=== PATIENT | female | born 2000 | race Caucasian/White ===

== ENCOUNTER 2019-03-03 02:15 | Observation (INO) | payer OTHER, SELFPAY ==
[2019-03-03] MEDS ORDERED: MORPHINE 4 MG/ML SYR ONE (02:52)
[2019-03-03] MEDS ORDERED: KETOROLAC 30 MG/ML INJ ONE (02:52)
[2019-03-03] MEDS ORDERED: ONDANSETRON 4 MG/2 ML VIAL ONE ×3 (02:53→14:24)
[2019-03-03 03:03] LABS: Urine Blood NEGATIVE (NEG); Urine Glucose NEGATIVE (NEG); Urine Protein NEGATIVE (NEG); Urine pH 6.5 (5.0-7.0)
[2019-03-03 03:41] LABS: ALT/SGPT 27 U/L (12-78); AST/SGOT 20 U/L (15-37); Alkaline Phosphatase 82 U/L (45-117); BUN Blood Urea Nitrogen 8 mg/dL (7-18); Bicarbonate 23 mmol/L (21-32); Bilirubin Direct 0.1 mg/dL (0-0.2); Bilirubin Total 0.4 mg/dL (0.2-1.0); Glucose Level 101 mg/dL (74-106); Lipase 154 U/L (73-393); Potassium 3.9 mmol/L (3.5-5.1); Protein, Total 7.1 g/dL (6.4-8.2); Sodium Level 138 mmol/L (136-145)
[2019-03-03 03:55] LABS: Hematocrit 42.8 % (36.0-45.0); MPV 7.4 fL (7.6-11.3)
[2019-03-03 03:59] LABS: Absolute Lymphocytes (CBC) 2.6 K/uL (0.7-4.9); Basophils % 0.4 % (0-1.3); Lymphocytes % 17.7 % (15.3-44.8); RBC Red Blood Cell Count 4.84 M/uL (3.86-4.86)
--- NOTE | 2019-03-03 05:19 | EDPHYS ---
Physician Documentation [facility] Name: Ryanne Sanders Age: 18 yrs Sex: Female : 2000 Arrival Date: 03/03/2019 Time: 02:17 Bed 8 Private MD: ALEXA Physician Bulmaro Hooper HPI: 03/03 02:51 This 18 yrs old Female presents to ER via Ambulatory with complaints of Side maurilio Pain. 02:51 The patient presents with abdominal pain right lower quadrant, abdominal distention in maurilio the upper abdomen, in the lower abdomen. Onset: The symptoms/episode began/occurred just prior to arrival. The patient presents with pain that is acute. The symptoms are located in the low back. Onset: The symptoms/episode began/occurred 1 day(s) ago. The pain does not radiate. Associated signs and symptoms: The patient has no apparent associated signs or symptoms. I O PSYCHOLOGIST: 02:31 LMP 01/29/2019 ch Historical: - Allergies: 02:47 No Known Allergies; ch - Home Meds: 02:47 sertraline oral oral [Active]; ch - PMHx: 02:47 None; ch - PSHx: 02:47 None; ch - Immunization history:: Adult Immunizations up to date. - Social history:: Smoking status: Patient/guardian denies using tobacco. - Ebola Screening: : Patient negative for fever greater than or equal to 101.5 degrees Fahrenheit, and additional compatible Ebola Virus Disease symptoms Patient denies exposure to infectious person Patient denies travel to an Ebola-affected area in the 21 days before illness onset No symptoms or risks identified at this time. ROS: 02:51 Constitutional: Negative for fever, chills, and weight loss, Eyes: Negative for injury, maurilio pain, redness, and discharge, ENT: Negative for injury, pain, and discharge, Neck: Negative for injury, pain, and swelling, Cardiovascular: Negative for chest pain, palpitations, and edema, Respiratory: Negative for shortness of breath, cough, wheezing, and pleuritic chest pain, Back: Negative for injury and pain, : Negative for injury, bleeding, discharge, and swelling, MS/Extremity: Negative for injury and deformity, Skin: Negative for injury, rash, and discoloration, Neuro: Negative for headache, weakness, numbness, tingling, and seizure, Psych: Negative for depression, anxiety, suicide ideation, homicidal ideation, and hallucinations, Allergy/Immunology: Negative for hives, rash, and allergies, Endocrine: Negative for neck swelling, polydipsia, polyuria, polyphagia, and marked weight changes, Hematologic/Lymphatic: Negative for swollen nodes, abnormal bleeding, and unusual bruising. 02:51 Abdomen/GI: Positive for abdominal pain, of the right lower quadrant. Exam: 02:51 Constitutional: This is a well developed, well nourished patient who is awake, alert, maurilio and in no acute distress. Head/Face: Normocephalic, atraumatic. Eyes: Pupils equal round and reactive to light, extra-ocular motions intact. Lids and lashes normal. Conjunctiva and sclera are non-icteric and not injected. Cornea within normal limits. Periorbital areas with no swelling, redness, or edema. ENT: Nares patent. No nasal discharge, no septal abnormalities noted. Tympanic membranes are normal and external auditory canals are clear. Oropharynx with no redness, swelling, or masses, exudates, or evidence of obstruction, uvula midline. Mucous membranes moist. Neck: Trachea midline, no thyromegaly or masses palpated, and no cervical lymphadenopathy. Supple, full range of motion without nuchal rigidity, or vertebral point tenderness. No Meningismus. Chest/axilla: Normal chest wall appearance and motion. Nontender with no deformity. No lesions are appreciated. Cardiovascular: Regular rate and rhythm with a normal S1 and S2. No gallops, murmurs, or rubs. Normal PMI, no JVD. No pulse deficits. Respiratory: Lungs have equal breath sounds bilaterally, clear to auscultation and percussion. No rales, rhonchi or wheezes noted. No increased work of breathing, no retractions or nasal flaring. Back: No spinal tenderness. No costovertebral tenderness. Full range of motion. Skin: Warm, dry with normal turgor. Normal color with no rashes, no lesions, and no evidence of cellulitis. MS/ Extremity: Pulses equal, no cyanosis. Neurovascular intact. Full, normal range of motion. Neuro: Awake and alert, GCS 15, oriented to person, place, time, and situation. Cranial nerves II-XII grossly intact. Motor strength 5/5 in all extremities. Sensory grossly intact. Cerebellar exam normal. Normal gait. Psych: Awake, alert, with orientation to person, place and time. Behavior, mood, and affect are within normal limits. 02:51 Abdomen/GI: Inspection: abdomen appears normal, Bowel sounds: normal, Palpation: moderate abdominal tenderness, in the right lower quadrant, Indicators: Liver: no appreciated palpable abnormalities. Vital Signs: 02:31 BP 123 / 76; Pulse 92; Resp 16; Temp 98.7; Pulse Ox 100% on R/A; Weight 68.04 kg; ch Height 5 ft. (152.40 cm); Pain 8/10; 03:22 BP 110 / 62; Pulse 88; Resp 14; Temp 98.2; Pulse Ox 99% on R/A; Pain 7/10; ch 04:32 BP 108 / 64; Pulse 70; Resp 16; Pulse Ox 100% ; ea 05:30 BP 118 / 58; Pulse 77; Resp 14; Temp 99.2; Pulse Ox 99% on R/A; Pain 2/10; ch 06:28 BP 106 / 52; Pulse 68; Resp 16; Pulse Ox 98% on R/A; Pain 2/10; ch 02:31 Body Mass Index 29.29 (68.04 kg, 152.40 cm) MDM: 02:30 Patient medically screened. [facility] 02:53 Data reviewed: vital signs, nurses notes, lab test result(s), radiologic studies, CT maurilio scan. 03/03 02:24 Order name: Urine Culture [facility] 03/03 02:24 Order name: Urine Microscopic Only [facility] 03/03 02:51 Order name: Basic Metabolic Panel; Complete Time: 03:59 [facility] 03/03 02:51 Order name: CBC with Diff; Complete Time: 04:22 [facility] 03/03 02:51 Order name: Creatinine for Radiology; Complete Time: 03:59 [facility] 03/03 02:51 Order name: Hepatic Function; Complete Time: 03:59 [facility] 03/03 02:51 Order name: Lipase; Complete Time: 03:59 [facility] 03/03 02:51 Order name: CT Abd/Pelvis - IV Contrast Only [facility] 03/03 02:54 Order name: Urine Dipstick--Ancillary (enter results); Complete Time: 03:59 ar 03/03 02:54 Order name: Urine --Ancillary (enter results); Complete Time: 03:59 ar5 03/03 02:24 Order name: Urine Test (obtain specimen); Complete Time: 03:23 snw 03/03 02:24 Order name: Urine Dipstick-Ancillary (obtain specimen); Complete Time: 03:23 snw 03/03 02:51 Order name: IV Saline Lock; Complete Time: 03:17 maurilio 03/03 02:51 Order name: Labs collected and sent; Complete Time: 03:17 maurilio 03/03 05:31 Order name: NPO; Complete Time: 06:22 [facility] Administered Medications: 03:23 Drug: TORadol 30 mg Route: IVP; Site: left antecubital; ch 03:54 Follow up: Response: No adverse reaction; Marked relief of symptoms ch 03:23 Drug: Zofran 4 mg Route: IVP; Site: left antecubital; ch 03:54 Follow up: Response: No adverse reaction ch 03:23 Drug: NS 0.9% 1000 ml Route: IV; Rate: 1 bolus; Site: left antecubital; ch 03:54 Follow up: IV Status: Completed infusion; IV Intake: 1000ml ch 05:41 Drug: Zosyn 3.375 grams Route: IVPB; Infused Over: 60 mins; Site: left antecubital; ea 06:37 Not Given (Patient Refused): morphine 2 mg IVP once; (PAIN>8) RASS on ADMN: Combtv4, ch Very Agttd3, Agttd2, Rstlss1, AlertClm0, Drwsy-1, LtSdtn-2, ModSdtn-3, DpSdtn-4, UnArsble-5 x2 Disposition: 03/03/19 05:18 Hospitalization ordered by He Beth for Observation. Preliminary diagnosis are Abdominal tenderness, Acute appendicitis. - Bed requested for Telemetry/MedSurg (observation). - Status is Observation. ch - Condition is Stable. - Problem is new. - Symptoms have improved. UTI on Admission? No Signatures: Dispatcher [employer] EDFrancia Nava RN Nupur Dc ch, RN RN mw Anderson, Corey, MD MD cha Therrien, Shelly, [employer] FURN[employer] SALES-C [employer]-[place]ian[place] Kathy Hernandez RN MICHAEL donohue Corrections: (The following items were deleted from the chart) 04:23 04:23 03/03/2019 04:23 Discharged to Home. Impression: Abdominal tenderness. Condition maurilio is Stable. Discharge Instructions: Abdominal Pain, Pediatric. Forms are Medication Reconciliation Form, Thank You Letter, Antibiotic Education, Prescription Opioid Use. Follow up: Private Physician; When: 2 - 3 days; Reason: Recheck today's complaints, Continuance of care, Re-evaluation by your physician. Problem is new. Symptoms have improved. maurilio 05:51 05:18 Hospitalization Ordered by He Beth MD for Observation. Preliminary mw diagnosis is Abdominal tenderness; Acute appendicitis. Bed requested for Telemetry/MedSurg (observation). Status is Observation. Condition is Stable. Problem is new. Symptoms have improved. UTI on Admission? No. maurilio 06:54 05:51 03/03/2019 05:18 Hospitalization Ordered by He Beth MD for Observation. ch Preliminary diagnosis is Abdominal tenderness; Acute appendicitis. Bed requested for Telemetry/MedSurg (observation). Status is Observation. Condition is Stable. Problem is new. Symptoms have improved. UTI on Admission? No. mw
--- NOTE | 2019-03-03 05:19 | ER ---
Nurse's Notes [facility] Name: Ryanne Sanders Age: 18 yrs Sex: Female : 2000 Arrival Date: 03/03/2019 Time: 02:17 Bed 8 Private MD: Diagnosis: Abdominal tenderness;Acute appendicitis Presentation: 03/03 02:31 Presenting complaint: Patient states: PAIN TO RLQ ABDOMEN, AROUND SIDE, AND INTO RLOWER ch BACK SINCE 1700. Transition of care: patient was not received from another setting of care. Onset of symptoms was March 02, 2019 at 17:00. Risk Assessment: Do you want to hurt yourself or someone else? Patient reports no desire to harm self or others. Initial Sepsis Screen: Does the patient meet any 2 criteria? No. Patient's initial sepsis screen is negative. Does the patient have a suspected source of infection? No. Patient's initial sepsis screen is negative. Care prior to arrival: None. 02:31 Method Of Arrival: Ambulatory 02:31 Acuity: COSME 3 ch Triage Assessment: 02:31 General: Appears in no apparent distress. uncomfortable, Behavior is calm, cooperative, ch appropriate for age. Pain: Complains of pain in right low back, posterior aspect of right lateral abdomen, anterior aspect of right lateral abdomen and right lower quadrant Pain currently is 8 out of 10 on a pain scale. Pain began suddenly. Neuro: No deficits noted. Cardiovascular: No deficits noted. Respiratory: Airway is patent Respiratory effort is even, unlabored. Derm: Skin is pink, warm \T\ dry. 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 - Social history:: Smoking status: Patient/guardian denies using tobacco. - Ebola Screening: : Patient negative for fever greater than or equal to 101.5 degrees Fahrenheit, and additional compatible Ebola Virus Disease symptoms Patient denies exposure to infectious person Patient denies travel to an Ebola-affected area in the 21 days before illness onset No symptoms or risks identified at this time. Screenin:53 Abuse screen: Denies threats or abuse. Denies injuries from another. Nutritional screening: No deficits noted. Tuberculosis screening: No symptoms or risk factors identified. Fall Risk None identified. Assessment: 03:22 General: Appears in no apparent distress. uncomfortable, Behavior is calm, cooperative, ch appropriate for age. Respiratory: Airway is patent Respiratory effort is even, unlabored. 03:53 Reassessment: Patient appears in no apparent distress at this time. Patient and/or family updated on plan of care and expected duration. Pain level reassessed. Patient is alert, oriented x 3, equal unlabored respirations, skin warm/dry/pink. Patient states feeling better. Patient states symptoms have improved. 04:20 Reassessment: Patient appears in no apparent distress at this time. No changes from previously documented assessment. Patient and/or family updated on plan of care and expected duration. Pain level reassessed. Patient is alert, oriented x 3, equal unlabored respirations, skin warm/dry/pink. Patient states symptoms have improved. 04:20 Reassessment: AWAITING CT RESULTS. 05:30 Reassessment: PHYSICIAN TELLS PT PLAN OF CARE, DX AND RESULTS. PT AND FAMILY VERB UNDERSTANDING. AWAITING DR ANDERS TO CONSENT PT. 06:29 Reassessment: ROOM RECEIVED, REPORT CALLED TO SECOND FLOOR. WILL SEND PT UP IN 10 MIN. Vital Signs: 02:31 BP 123 / 76; Pulse 92; Resp 16; Temp 98.7; Pulse Ox 100% on R/A; Weight 68.04 kg; ch Height 5 ft. (152.40 cm); Pain 8/10; 03:22 BP 110 / 62; Pulse 88; Resp 14; Temp 98.2; Pulse Ox 99% on R/A; Pain 7/10; ch 04:32 BP 108 / 64; Pulse 70; Resp 16; Pulse Ox 100% ; ea 05:30 BP 118 / 58; Pulse 77; Resp 14; Temp 99.2; Pulse Ox 99% on R/A; Pain 2/10; ch 06:28 BP 106 / 52; Pulse 68; Resp 16; Pulse Ox 98% on R/A; Pain 2/10; ch 02:31 Body Mass Index 29.29 (68.04 kg, 152.40 cm) ED Course: 02:17 Patient arrived in ED. ds1 02:29 Rufus, Bulmaro, MD is Attending Physician. maurilio 02:31 Francia Jackson, RN is Primary Nurse. ch 02:31 Triage completed. ch 02:31 Arm band placed on left wrist. Patient placed in an exam room, on a stretcher. ch 03:10 Initial lab(s) drawn, by me, sent to lab. Inserted saline lock: 20 gauge in right aa1 antecubital area, using aseptic technique. Blood collected. 03:53 No apparent distress. Resting quietly. ch 03:53 Patient has correct armband on for positive identification. Bed in low position. Call light in reach. Adult w/ patient. Pulse ox on. NIBP on. Warm blanket given. 03:53 No provider procedures requiring assistance completed. ch 04:23 CT Abd/Pelvis - IV Contrast Only In Process Unspecified. EDMS 05:18 He Anders MD is Hospitalizing Provider. maurilio 06:28 Patient admitted, IV remains in place. ch Administered Medications: 03:23 Drug: TORadol 30 mg Route: IVP; Site: left antecubital; ch 03:54 Follow up: Response: No adverse reaction; Marked relief of symptoms ch 03:23 Drug: Zofran 4 mg Route: IVP; Site: left antecubital; ch 03:54 Follow up: Response: No adverse reaction ch 03:23 Drug: NS 0.9% 1000 ml Route: IV; Rate: 1 bolus; Site: left antecubital; ch 03:54 Follow up: IV Status: Completed infusion; IV Intake: 1000ml ch 05:41 Drug: Zosyn 3.375 grams Route: IVPB; Infused Over: 60 mins; Site: left antecubital; ea 06:37 Not Given (Patient Refused): morphine 2 mg IVP once; (PAIN>8) RASS on ADMN: Combtv4, ch Very Agttd3, Agttd2, Rstlss1, AlertClm0, Drwsy-1, LtSdtn-2, ModSdtn-3, DpSdtn-4, UnArsble-5 x2 Intake: 03:54 IV: 1000ml; Total: 1000ml. ch Outcome: 04:23 Discharge ordered by . maurilio 05:18 Decision to Hospitalize by Provider. maurilio 06:54 Patient left the ED. ch Signatures: Dispatcher [employer] EDCT Jackson, Francia, RN RN ch Olga Mora RN RN aa1 Bulmaro Hooper MD MD cha Sanford, Demi ds1 Antunez, Elena, RN RN ea
[2019-03-03] MEDS ORDERED: PIPER/TAZO/NS 3.375gm 3.375 GM/100 ML BAG ONE (05:30)
[2019-03-03 06:13] LABS: Urine Culture Reflex Order NOT NEEDED
[2019-03-03 06:14] LABS: Urine Bacteria <20 /HPF (<20); Urine RBC <5 /HPF (NONE SEEN)
[2019-03-03] MEDS ORDERED: PIPER/TAZO/NS 3.375gm 3.375 GM/100 ML BAG IVPB SCH (06:59)
[2019-03-03] MEDS ORDERED: ONDANSETRON 4 MG/2 ML VIAL IV PRN (06:59)
[2019-03-03] MEDS ORDERED: ACETAMINOPHEN 325 MG TABLET PO PRN (06:59)
[2019-03-03] MEDS ORDERED: MORPHINE 4 MG/ML SYR IV PRN (06:59)
[2019-03-03 07:29] VITALS: BMI 29.2
[2019-03-03] MEDS: D5 0.45 NS 1,000 ML IV SCH ×2 (08:16→14:59)
[2019-03-03] MEDS ORDERED: INFLUENZA VACCINE (for 3y+) 0.5 ML DOSE IMVAC ONE (09:00)
[2019-03-03] MEDS: PIPER/TAZO/NS 3.375gm 3.375 GM/100 ML BAG IVPB SCH ×2 (11:29→17:00)
[2019-03-03 13:17] VITALS: O2SAT 100
[2019-03-03] MEDS ORDERED: Ringers Lactate 1,000 ML IV ONE (13:20)
[2019-03-03] MEDS ORDERED: PROPOFOL 200 MG/20 ML VIAL IV ONE (13:42)
[2019-03-03] MEDS ORDERED: ROCURONIUM 50 MG/5 ML VIAL IV ONE (13:42)
--- NOTE | 2019-03-03 13:49 | RAD REPORT ---
EXAM DESCRIPTION: CT - Abdomen Pelvis W Contrast - 03/03/2019 5:59 am COMPARISON: None. TECHNIQUE: CT ABDOMEN PELVIS WITH IV CONTRAST on 03/03/2019 2:51 AM CDT This exam was performed according to our departmental dose-optimization program, which includes autom ated exposure control, adjustment of the mA and/or kV according to patient size and/or use of iterati ve reconstruction technique. FINDINGS: Lower lungs are clear. Abdomen: The liver is normal in appearance. There is no biliary dilatation. Gallbladder is decompress ed. The pancreas and spleen are normal in appearance. The adrenal glands and kidneys are unremarkable . Abdominal aorta is normal in course and caliber without aneurysm. There is no free air. There is no r etroperitoneal adenopathy. Pelvis: There is no bowel obstruction. Urinary bladder is unremarkable. There is free pelvic fluid. A ppendix is dilated at 1.1 cm. There is mild surrounding inflammation. Uterus is normal in size. Skeleton: There are no acute osseous findings. No suspicious bony lesions. IMPRESSION: Suspect acute appendicitis. Electronically signed by: Atif Bean MD 03/03/2019 4:56 AM CDT Due to temporary technical issues with the PACS/Fluency reporting system, reports are being signed by the in house radiologist as a courtesy to ensure prompt reporting. The interpreting radiologist is f ully responsible for the content of the report.
[2019-03-03] MEDS ORDERED: MIDAZOLAM HCL 2 MG/2 ML INJ ONE (14:01)
[2019-03-03] MEDS ORDERED: FENTANYL CITR 100 MCG/2 ML ONE (14:01)
[2019-03-03] MEDS ORDERED: dexAMETHasone 10 MG/ML VIAL ONE (14:24)
[2019-03-03] MEDS ORDERED: MEPERIDINE HCL 25 MG/0.5 ML ONE (14:42)
[2019-03-03] MEDS ORDERED: Mastisol Adhesive Liq ONE (14:44)
--- NOTE | 2019-03-03 14:52 | P.BOP ---
Preoperative diagnosis: acute appendicitis Postoperative diagnosis: same Primary procedure: Laparoscopic appendectomy Measuring Machine Tender: Ela La (Dot) Estimated blood loss: <10cc Specimen: jordana Findings: as above Anesthesia: General Complications: None Transferred to: Recovery Room Condition: Good
[2019-03-03] MEDS ORDERED: HYDROCODONE/APAP 5/325 MG TAB PO PRN (15:03)
[2019-03-03] MEDS ORDERED: D5 0.45 NS 1,000 ML IV ONE (15:05)
[2019-03-03 18:13] VITALS: BP 108/55; TEMP 98.6
--- NOTE | 2019-03-04 00:45 | HP ---
Date of Admission: 03/03/2019 Diagnoses: Right lower quadrant abdominal pain. History Of Present Illness: This is the case of a 18-year-old patient, who comes to us with right lo wer quadrant pain for the last 24 hours. She showed up this morning in ER after the pain was not imp roving and getting worse in the right lower quadrant. She states some bloating, nausea. No vomiting . She denies any dysuria, hematuria, hematochezia, or melena. Denies recent travel to another [facility]. Denies any family member sick at home. Denies any vaginal discharge. Denies any period this mo ment. Last menstrual period was on 01/29/2019. Allergies: NONE. Medications: Sertraline. Medical Problems: None. Surgeries: None. Social History: She does not smoke. She does not drink alcohol. Review of Systems: Ten points, otherwise unremarkable. Physical Examination: General: Patient is awake and alert. HEENT: Pupils are equal and reactive. Anicteric. Neck: Supple. Chest: Clear. Abdomen: Right lower quadrant tenderness with guarding and rebound. Psoas signs positive. Pelvic: Deferred. Breast: Deferred. Rectal: Deferred. Extremities: Good capillary refill. Good peripheral pulses. Neuro: Oriented x3. Laboratory Data: Blood work shows WBC count of 14.7, hemoglobin of 14.8, chloride is 108, lipase is 154. UA, nitrite negative. test negative. CAT scan of abdomen and pelvis interpreted by radiologist as early appendicitis. Assessment And Plan: This is a 18-year-old female with intractable right lower quadrant tenderness w ith guarding and rebound. Appendix review suspecting acute appendicitis. Patient was explained the surgical findings and imaging findings with benefits, alternatives, and risks of emergent laparoscopi c, possible open appendectomy fully explained which include but are not limited to infection, bleedin g, damage to adjacent structures, anesthesia complication, negative appendix, negative exploration, M I, and even . She also understands this may not relieve the symptoms. She might need more than one surgical intervention. She understands also chance of negative appendix. She understood. OR w as notified. Case emergently scheduled. KAMLESH Voice ID: [id number]
--- NOTE | 2019-03-04 01:50 | OP ---
Date of Procedure: 03/03/2019 Surgeon: He Beth MD Internet Developer: BEN Pruitt Preoperative Diagnosis: Acute appendicitis. Postoperative Diagnosis: Acute appendicitis. Procedure: Laparoscopic appendectomy. Estimated Blood Loss: Less than 10 cc. Specimen: Appendix. Anesthesia: General plus local. Indications: This is a case of a 18-year-old patient, who comes to us with above diagnosis. Fully e xplained the benefits, alternatives, and risks of laparoscopic, possible open appendectomy, which inc lude but are not limited to infection, bleeding, damage to adjacent structures, anesthesia complicati on, [place], and even . She also understands this may not relieve her symptoms. She might need more than 1 surgical intervention. She understood, signed the consent. Description Of Procedure: Patient was brought to the operating room, placed in supine position. Ane sthesia was done without complication. Abdominal area was prepped and draped in a sterile fashion. Marcaine 0.5% was injected for local anesthetic, followed by sharp incision of the skin in the infrau mbilical region. Incision was carried down to fascia, which was opened under direct vision. Periton eum was encountered, opened under direct vision. Vicryl #1 placed inside the fascia. Lauren trocar was carefully introduced. No bleeding was obtained. I placed 3 more trocars, 5 mm each one of them, in the suprapubic, left lower quadrant under direct visualization. This allowed me to visualize the area of the appendix. We noticed the appendix to be inflamed, erythematosus consisted with appendic itis. The base of the appendix was spared, so we created window in the base of the appendix, transec leland that with an Endo ALIX 45 mm 3.5, and the mesoappendix with an Endo ALIX 45 mm 2.5. No bowel leak. No bleeding. Appendix was removed from the abdomen using EndoCatch through the umbilical incision. The area was inspected once again. No bowel leak. No bleeding. At that moment, I proceeded to re move trocars under direct vision. Deflated pneumoperitoneum. Closed the fascia with #1 Vicryl. Irr igated subcu tissue, closed that with 3-0 chromic and skin with 3-0 chromic and Steri-Strips on top. Sponge count and instrument counts were correct. The patient tolerated the procedure well. Patient was sent to recovery in stable condition. HM/MODL Voice ID: [id number] Report ID: [id number]
--- NOTE | 2019-03-04 02:16 | DS ---
Date of Discharge: 03/03/2019 Diagnosis: Acute appendicitis. Procedure: Laparoscopic appendectomy. Disposition: Home. Activity: As tolerated. No heavy lifting. Followup: Follow up in my office in 1 week. Call for appointment [phone]. Wound Care: Keep area dry for 48 hours, then may shower. Keep Steri-Strips intact. Medications: Augmentin 875 p.o. q.12, Zofran 4 every 6 p.r.n. nausea, and Tylenol No. 3 q.4 hours p. r.n. pain. Discharge Instructions: Patient advised to take diet first. If she can tolerate diet, she can go ho me as she wished. Otherwise, we will send the patient home tomorrow morning. We will try diet this afternoon. KAMLESH Voice ID: [id number] Report ID: [id number]
== END 2019-03-03 19:02 | disposition home or self-care (01) ==
LOC: ER 02:15 → 2ND 06:27
PROVIDERS: ADMIT Surgery; ATTEND Surgery
PROC: 0DTJ4ZZ Resection of Appendix, Percutaneous Endoscopic Approach (ICD-10-PCS; principal; 2019-03-03 12:30)
DX: K35.80 Unspecified acute appendicitis (principal); F17.290 Nicotine dependence, other tobacco product, uncomplicated
CPT/HCPCS: 36415; 74177; 80048; 80076; 81003; 81015; 81025; 83690; 85025; 87086; 87088; 88304; 96361; 96374; 96375; 99284; G0378; J1100; J2175; J2250; J2405; J2543; J2704; J3010; Q9967

== ENCOUNTER 2022-02-27 13:40 | Emergency (ER) | payer SELFPAY ==
[2022-02-27 15:05] LABS: Absolute Lymphocytes (CBC) 2.4 K/uL (0.7-4.9); Hematocrit 42.4 % (36.0-45.0); Lymphocytes % 23.6 % (15.3-44.8); MCV 86.5 fL (80-100); MPV 6.5 fL (7.6-11.3)
--- NOTE | 2022-02-27 15:08 | RAD REPORT ---
EXAM DESCRIPTION: RAD - Chest Single View - 02/27/2022 3:00 pm CLINICAL HISTORY: CHEST PAIN Chest pain. COMPARISON: Chest Single View dated 11/18/2016; Abdomen 1 View (KUB) dated 10/07/2015 FINDINGS: Portable technique limits examination quality. The lungs are grossly clear. The heart is normal in size. No displaced fractures. IMPRESSION: No acute intrathoracic process suspected.
[2022-02-27 15:36] LABS: Potassium 3.7 mmol/L (3.5-5.1); Troponin High Sensitivity 3.2 pg/mL (<58.9)
--- NOTE | 2022-02-27 18:11 | ER ---
Nurse's Notes [facility] Name: Ryanne Sanders Age: 21 yrs Sex: Female : 2000 Arrival Date: 02/27/2022 Time: 13:44 Bed 23 [facility] MD: Diagnosis: Chest pain, unspecified Presentation: 02/27 13:47 Chief complaint: Patient states: Chest pain, SOB, left arm "sore" on and off since ld1 Wednesday. "I think it is my anxiety panic attacks.". Coronavirus screen: At this time, the client does not indicate any symptoms associated with coronavirus-19. Ebola Screen: No symptoms or risks identified at this time. Initial Sepsis Screen: Does the patient meet any 2 criteria? No. Patient's initial sepsis screen is negative. Does the patient have a suspected source of infection? No. Patient's initial sepsis screen is negative. Risk Assessment: Do you want to hurt yourself or someone else? Patient reports no desire to harm self or others. Onset of symptoms was February 27, 2022 at 13:50. 13:47 Method Of Arrival: Ambulatory ld1 13:47 Acuity: COSME 3 ld1 Triage Assessment: 13:50 General: Appears in no apparent distress. Behavior is cooperative, anxious. Pain: ld1 Complains of pain in chest Pain does not radiate. Pain currently is 0 out of 10 on a pain scale. at worst was 8 out of 10 on a pain scale. Quality of pain is described as pressure. EENT: No signs and/or symptoms were reported regarding the EENT system. Neuro: Level of Consciousness is awake, alert, obeys commands, Oriented to person, place, time, situation. Cardiovascular: Capillary refill < 3 seconds Patient's skin is warm and dry. Respiratory: Airway is patent Respiratory effort is even, unlabored. GI: Abdomen is flat, non-distended. : No signs and/or symptoms were reported regarding the genitourinary system. Derm: No signs and/or symptoms reported regarding the dermatologic system. Musculoskeletal: No signs and/or symptoms reported regarding the musculoskeletal system. 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 - Social history:: Smoking status: Reported history of juuling and/or vaping. Patient/guardian denies using alcohol. Screenin:54 Abuse screen: Denies threats or abuse. Nutritional screening: No deficits noted. ll1 Tuberculosis screening: No symptoms or risk factors identified. Fall Risk IV access (20 points). Total Mcadams Fall Scale indicates No Risk (0-24 pts). Assessment: 17:16 Reassessment: No changes from previously documented assessment. Patient and/or family ll1 updated on plan of care and expected duration. Pain level reassessed. Patient is alert, oriented x 3, equal unlabored respirations, skin warm/dry/pink. 17:40 Reassessment: No changes from previously documented assessment. Patient and/or family ll1 updated on plan of care and expected duration. Pain level reassessed. 18:21 Pain: Pain began. kr3 Vital Signs: 13:47 Pulse 90; Resp 18; Temp 97.6(TE); Pulse Ox 100% on R/A; Weight 61.23 kg; Height 4 ft. ld1 11 in. (149.86 cm); Pain 0/10; 17:15 BP 103 / 71; Pulse 75; Resp 16; Pulse Ox 99% ; ll1 18:20 BP 94 / 73; Pulse 60; Resp 16; Pulse Ox 100% on R/A; kr3 13:47 Body Mass Index 27.27 (61.23 kg, 149.86 cm) ld1 ED Course: 13:44 Patient arrived in ED. dt4 13:50 Triage completed. ld1 13:50 Arm band placed on right wrist. ld1 13:57 [facility] Alex[facility]-C [facility]. kb 13:57 Nick Mariee MD is Attending Physician. kb 14:47 Initial lab(s) drawn, by me, sent to lab. Inserted saline lock: 20 gauge in right dh3 antecubital area, using aseptic technique. Blood collected. 15:00 XRAY Chest (1 view) In Process Unspecified. EDMS 17:16 Patient placed in an exam room, on a stretcher. ll1 17:28 Troponin HS Sent. ll1 17:54 Patient has correct armband on for positive identification. Bed in low position. Call ll1 light in reach. Client placed on continuous cardiac and pulse oximetry monitoring. NIBP monitoring applied. site monitor on. 17:54 No provider procedures requiring assistance completed. Patient maintains SpO2 ll1 saturation greater than 95% on room air. 18:11 Maricruz Murillo, RN is Primary Nurse. kr3 18:21 IV discontinued, intact, bleeding controlled, No redness/swelling at site. Pressure kr3 dressing applied. Administered Medications: No medications were administered Medication: 17:54 VIS not applicable for this client. ll1 Outcome: 18:10 Discharge ordered by . ashley 18:21 Discharged to home kr3 18:21 Condition: stable 18:21 Discharge instructions given to patient, Instructed on discharge instructions, follow up and referral plans. Demonstrated understanding of instructions, follow-up care. 18:22 Patient left the ED. kr3 Signatures: Dispatcher [employer] EDMS Gunjan Alexandra, AMY-C COURT CLERK-Malathi Larry 3 Lory Tobias RN RN ll1 Edith Garcia RN RN ld1 Maricruz Murillo, RN RN kr3 Jodi Friedman dt4
--- NOTE | 2022-02-27 18:11 | EDPHYS ---
Physician Documentation [facility] Name: Ryanne Sanders Age: 21 yrs Sex: Female : 2000 Arrival Date: 02/27/2022 Time: 13:44 Bed 23 Private MD: ED Physician Nick Mariee HPI: 02/28 01:04 This 21 yrs old Female presents to ER via Ambulatory with complaints of Chest Pain, Arm kb Pain, Shortness Of Breath. 01:04 Patient reports chest pain, shortness of breath and left arm soreness that has been kb intermittent since Wednesday. States she has anxiety attacks and this feels similar but is not sure if that is the actual cause so she wanted to get checked.. 01:05 The patient or guardian reports chest pain that is located primarily in the center of kb chest. The pain does not radiate. Associated signs and symptoms: Pertinent positives: shortness of breath. The chest pain is described as aching. Duration: The patient or guardian reports multiple episodes, that are intermittent, with no pattern. Modifying factors: The symptoms are alleviated by nothing. the symptoms are aggravated by nothing. Severity of pain: At its worst the pain was moderate in the emergency department the pain has resolved. The patient has not experienced similar symptoms in the past. The patient has not recently seen a physician. 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 - Social history:: Smoking status: Reported history of juuling and/or vaping. Patient/guardian denies using alcohol. ROS: 02/28 01:04 Constitutional: Negative for fever, chills, and weight loss. kb Cardiovascular: Positive for chest pain. Respiratory: Positive for shortness of breath. MS/extremity: Positive for pain, of the left arm. All other systems are negative. Exam: 02/27 14:42 Constitutional: This is a well developed, well nourished patient who is awake, alert, kb and in no acute distress. Head/Face: Normocephalic, atraumatic. ENT: Moist Mucous membranes Cardiovascular: Regular rate and rhythm with a normal S1 and S2. No gallops, murmurs, or rubs. No pulse deficits. Respiratory: Respirations even and unlabored. No increased work of breathing. Talking in full sentences Abdomen/GI: Soft, non-tender. No distention Skin: Warm, dry with normal turgor. Normal color. MS/ Extremity: Pulses equal, no cyanosis. Neurovascular intact. Full, normal range of motion. Neuro: Awake and alert, GCS 15, oriented to person, place, time, and situation. Moves all extremities. Normal gait. Psych: Awake, alert, with orientation to person, place and time. Behavior, mood, and affect are within normal limits. ECG was reviewed by the Attending Physician. Vital Signs: 13:47 Pulse 90; Resp 18; Temp 97.6(TE); Pulse Ox 100% on R/A; Weight 61.23 kg; Height 4 ft. ld1 11 in. (149.86 cm); Pain 0/10; 17:15 BP 103 / 71; Pulse 75; Resp 16; Pulse Ox 99% ; ll1 18:20 BP 94 / 73; Pulse 60; Resp 16; Pulse Ox 100% on R/A; kr3 13:47 Body Mass Index 27.27 (61.23 kg, 149.86 cm) ld1 MDM: 13:58 Patient medically screened. kb 18:10 ED course: HEART score 0. kb 02/28 01:04 Data reviewed: vital signs, nurses notes. Data interpreted: Pulse oximetry: on room air kb is 100 %. Interpretation: normal. Counseling: I had a detailed discussion with the patient and/or guardian regarding: the historical points, exam findings, and any diagnostic results supporting the discharge/admit diagnosis, lab results, radiology results, the need for outpatient follow up, a family practitioner, to return to the emergency department if symptoms worsen or persist or if there are any questions or concerns that arise at home. 02/27 14:03 Order name: Basic Metabolic Panel; Complete Time: 15:46 kb 02/27 14:03 Order name: CBC with Diff; Complete Time: 15:17 kb 02/27 14:03 Order name: D-Dimer; Complete Time: 15:17 kb 02/27 14:03 Order name: Troponin HS; Complete Time: 15:46 kb 02/27 17:03 Order name: Troponin HS kb 02/27 17:58 Order name: Troponin High Sensitivity EDMS 02/27 14:03 Order name: XRAY Chest (1 view); Complete Time: 15:17 kb 02/27 14:03 Order name: EKG; Complete Time: 14:04 kb 02/27 14:03 Order name: Cardiac monitoring; Complete Time: 17:12 kb 02/27 14:03 Order name: EKG - Nurse/Tech; Complete Time: 16:22 kb 02/27 14:03 Order name: IV Saline Lock; Complete Time: 14:51 kb 02/27 14:03 Order name: Labs collected and sent; Complete Time: 14:51 kb 02/27 14:03 Order name: O2 Per Protocol; Complete Time: 16:22 kb 02/27 14:03 Order name: O2 Sat Monitoring; Complete Time: 16:23 kb EC/23 14:42 Rate is 73 beats/min. Rhythm is regular. QRS Bastian is Normal. IA interval is normal at kb 124 msec. QRS interval is normal at 80 msec. QT interval is normal at 396 msec. Administered Medications: No medications were administered Disposition: 16:09 Co-signature as Attending Physician, Nick Mariee MD. rn Disposition Summary: 02/27/22 18:10 Discharge Ordered Location: Home kb Condition: Stable kb Diagnosis - Chest pain, unspecified kb Followup: kb - With: Emergency Department - When: As needed - Reason: Worsening of condition Followup: kb - With: Private Physician - When: 2 - 3 days - Reason: Recheck today's complaints, Continuance of care, Re-evaluation by your physician Discharge Instructions: - Discharge Summary Sheet kb - Nonspecific Chest Pain, Adult, [id number] kb Forms: - Medication Reconciliation Form kb - Thank You Letter kb - Antibiotic Education kb - Prescription Opioid Use kb Signatures: Dispatcher [employer] EDGunjan Gutiérrez, MUSIC DIRECTOR-C MUSIC DIRECTOR-Ckb Nick Mariee MD MD rn Dibbern, Lauren, RN RN ld1
[2022-03-01 07:47] VITALS: TEMP 97.6
[2022-03-01 07:53] VITALS: BP 94/73; O2SAT 100
--- NOTE | 2022-03-02 14:14 | EKG ---
Test Date: 2022-02-27 Test Time: 13:53:45 Glass Inserter: ENRIQUETA MEASUREMENT RESULTS: Intervals: Rate: 73 VT: 124 QRSD: 80 QT: 360 QTc: 396 [place]: P: 24 VT: 124 QRS: 41 T: 46 INTERPRETIVE STATEMENTS: Normal sinus rhythm Normal ECG Compared to ECG 11/18/2016 08:03:15 No significant changes Electronically Signed On 03-02-22 14:10:12 CDT by Kieran Gaines
== END 2022-02-27 18:22 | disposition home or self-care (01) ==
LOC: ER 13:40
DX: R07.9 Chest pain, unspecified (principal)
CPT/HCPCS: 36415; 71045; 80048; 84484; 85025; 85379; 93005; 99284